=== PATIENT | male | born 1955 | race African-American/Black ===

== ENCOUNTER → 2016-10-25 | Outpatient (CLI) | payer OTHER ==
[~2016-10-25] MED LIST: NO MEDICATIONS
--- NOTE | ~2016-10-25 | CT57 ---
[facility] A Service of [facility] RADIOLOGY TEXT RESULTS PATIENT: RAYRAY POP LOCATION: [facility] : 55 UNIT #: [id number] AGE: [address]: Hilario Gonzáles MD SEX: M ORDER DR: [id number] [facility] [address] [place], [place] [address] [id number] O MR#: [id number] Acc #: [id number] NAME: RAYRAY POP : 1955 SEX: M STUDY DATE/TIME: 10/25/2016 16:01 UNIT: [facility] ROOM: STUDY DESCRIPTION: CT Chest Wo Cont Attending Physician: Hilario Gonzáles M.D. Referring Physician: Hilario Gonzáles M.D. Ordering Physician: Hilario Gonzáles M.D. Primary Care Physician: Félix Mitchell MEDICAL IMAGING REPORT This report is preliminary unless electronic signature is present EXAM CT chest without contrast 10/25/2016 1601 hours HISTORY 61-year-old man for followup of lung nodule. No current chest complaints. No prior malignancy. COMPARISON Chest CT 05/04/2013 and 02/10/2011 TECHNIQUE Helical noncontrasted images were obtained from the thoracic inlet through the adrenal glands. Sagittal and coronal reconstructions were performed. No contrast was administered. Total exam DLP 356 mGy-cm. This CT exam was performed with one or more of the following radiation dose reduction techniques: automatic control, adjustment of mA and/or kV according to patient size, and iterative reconstruction. FINDINGS Images through the thoracic inlet demonstrate mild enlargement of the thyroid right lobe greater than left similar to prior exam. Images through the chest demonstrate volume loss and scarring in the right apex with underlying bullae. There is persistent shift of the superior mediastinum to the right including the trachea and esophagus which are both mildly dilated but unchanged. There is no pathologic mediastinal, hilar or axillary adenopathy. Lung window images demonstrate underlying emphysema. There are blebs and bullae at the right apex with stable abnormal parenchymal density and scarring. There is posterior pleural thickening also unchanged from 2013. There is mild linear scar at the posteromedial left apex which is also stable. There is mild pleural thickening and calcification in the anterior mid-right hemithorax which is unchanged. [facility] A Service of [facility] RADIOLOGY TEXT RESULTS PATIENT: RAYRAY POP LOCATION: [facility] : 55 UNIT #: [id number] AGE: [address]: Hilario Gonzáles MD SEX: M ORDER DR: Limited views through the upper abdomen demonstrate a benign cyst anteriorly in the right lobe of the liver unchanged. The adrenal glands are normal. There are multiple low attenuation lesions in the cortex of both kidneys similar to prior exam likely cysts. IMPRESSION 1. There is underlying emphysematous change with bullous changes and apical scarring on the right which is similar to 05/04/2013. This results in volume loss in the right hemithorax and shift of the superior mediastinum to the right including a mildly dilated esophagus and trachea similar to 05/04/2013 2. There is minimal linear scarring at the medial left lung apex which is also stable. 3. There is mild anterior pleural thickening in the mid right hemithorax with small calcifications unchanged. 4. Stable benign liver cyst and bilateral renal cortical cysts. Dictated by... Jane Berg M.D. THIS IS AN ELECTRONICALLY VERIFIED REPORT Jane Berg M.D. at 10/27/2016 2:30 PM ANNI/cookie TD: 10/27/2016 13:45 JOB #: [id number] MEDICAL IMAGING REPORT Page 1 of 1 COPY
== END | disposition home or self-care (01) ==
LOC: CCAT 14:25
DX: R91.1 Solitary pulmonary nodule (principal); J98.4 Other disorders of lung; K22.8 Other specified diseases of esophagus; K76.89 Other specified diseases of liver; N28.1 Cyst of kidney, acquired
CPT/HCPCS: 71250

== ENCOUNTER → 2017-01-10 | Outpatient (CLI) | payer OTHER ==
[2017-01-10 15:28] LABS: HEMOGLOBIN 14.8 gm/dL (13.0-16.0); MEAN CELL VOLUME 93.6 FL (83-96); MEAN CORPUSCULAR HEMOGLOBIN 30.1 PG (28-34); MEAN CORPUSCULAR HGB CONC 32.2 g/dL (30-36); MEAN PLATELET VOLUME 7.1 FL (6.5-11.5); RED BLOOD COUNT 4.92 X10e (3.90-5.60); RED CELL DISTRIBUTION WIDTH 15.6 % (11.0-15.5); WHITE BLOOD COUNT 4.3 X10e3 (4.0-10.5)
[2017-01-10 16:03] LABS: BILIRUBIN,TOTAL 0.5 mg/dL (0.2-2.0); BUN/CREATININE RATIO 13.84; CALCIUM SERUM 9.7 mg/dL (8.4-10.2); CREATININE SERUM 1.3 mg/dL (0.6-1.4); GLOM FILT RATE Estimated 68.3 mL/min (>60); POTASSIUM 4.5 mmol/L (3.5-5.1); PROTEIN TOTAL SERUM 7.8 g/dL (6.0-8.3)
== END | disposition home or self-care (01) ==
LOC: CLAB 15:13
PROVIDERS: Internal Medicine
DX: R79.89 Other specified abnormal findings of blood chemistry (principal)
CPT/HCPCS: 36415; 80053; 85027